=== PATIENT | male | born 1955 | race Caucasian/White ===

== ENCOUNTER 2024-02-06 06:55 | Day surgery (SDC) | payer BC ==
[2024-02-04 13:57] LABS: BASOPHILS # (AUTO) 0.08 K/uL (0.00-0.20); BASOPHILS % (AUTO) 1.1 % (0.0-5.0); EOSINOPHILS # (AUTO) 0.46 K/uL (0.00-0.70); EOSINOPHILS % (AUTO) 6.4 % (0.0-8.0); HEMATOCRIT 40.8 % (42-54); IMMATURE GRANULOCYTE ABSOLUTE 0.05 K/uL (0-1); LYMPHOCYTES # (AUTO) 1.8 K/uL (1.0-4.8); LYMPHOCYTES % (AUTO) 25.3 % (21.0-51.0); MEAN CORPUSCULAR HEMOGLOBIN 29.4 pg (27.0-33.0); MEAN CORPUSCULAR HGB CONC 34.3 g/dL (32.0-36.0); MEAN CORPUSCULAR VOLUME 85.5 fL (79-99); MONOCYTES # (AUTO) 0.4 K/uL (0.1-1.0); MONOCYTES % (AUTO) 5.9 % (3.0-13.0); NEUTROPHILS # (AUTO) 4.3 K/uL (1.8-7.7); NEUTROPHILS % (AUTO) 60.6 % (40.0-77.0); PLATELET COUNT (AUTO) 209 K/uL (130-400); RED BLOOD CELL COUNT(AUTO) 4.77 MIL/uL (4.50-6.20); RED CELL DISTRIBUTION WIDTH 13.4 % (11.0-15.5); WHITE BLOOD COUNT (AUTO) 7.2 K/uL (4.8-10.8)
[2024-02-04 13:59] VITALS: BP 154/78; PULSE 51; RESP 19
[2024-02-06] VITALS (17 sets, daily range): BP systolic 128–150; BP diastolic 58–81; PULSE 51–71; RESP 9–16
[~2024-02-06] VITALS: Ht 182.9 cm; Wt 101.2 kg
[~2024-02-06 06:55] MED LIST: HYDR-3830 PO; IRBE75TA16 PO; METO-391 PO; OMEP40CA21 PO; PREG75CA76 PO; ROTI1PAT8 TP; TADA10TA14 PO; TAMS-1 PO
[2024-02-06] MEDS ORDERED: LIDOCAINE HCL MPF 1% 5ML VIAL ONE (07:53)
[2024-02-06] MEDS ORDERED: MIDAZOLAM HCL 1 MG/ML 2ML VIAL ONE (07:55)
[2024-02-06] MEDS ORDERED: PROPOFOL 10 MG/ML 20ML VIAL IV ONE (07:55)
[2024-02-06] MEDS ORDERED: ROCURONIUM BROMIDE 10MG/1ML 5ML VL ONE (07:55)
[2024-02-06] MEDS ORDERED: DEXAMETHASONE SOD PHOSPHATE 10MG/ML 1ML VIAL ONE (07:56)
[2024-02-06] MEDS ORDERED: FENTANYL CITRATE PF 50 MCG/1 ML 2ML VIAL ONE (07:56)
[2024-02-06] MEDS ORDERED: ONDANSETRON 4MG INJ ONE (07:57)
[2024-02-06] MEDS: LACTATED RINGERS 1000ML 1,000 ML IV ONE (08:15)
[2024-02-06] MEDS ORDERED: NEOSTIGMINE METHYLSULFATE 1MG/ML IV ONE (08:52)
[2024-02-06] MEDS ORDERED: GLYCOPYRROLATE 0.2 MG/ML 5 ML VIAL ONE (08:52)
[2024-02-06] MEDS ORDERED: EPHEDRINE SULFATE 50 MG/ML AMPULE ONE (08:57)
[2024-02-06] MEDS ORDERED: KETOROLAC 30MG VIAL (30MG/ML) ONE (09:10)
[2024-02-06] MEDS: ONDANSETRON 4MG INJ ONE (10:15)
[2024-02-06] MEDS: MEPERIDINE-PF 25 MG/ML SYG ONE (10:16)
[2024-02-06] MEDS: ACETAMINOPHEN 1,000 MG/100 ML VIAL IV ONE (10:16)
[2024-02-06] MEDS: PHENAZOPYRIDINE HCL 200 MG TABLET ONE (10:50)
[2024-02-06] MEDS: CEFTRIAXONE 1G VIAL ONE (10:56)
== END 2024-02-06 11:17 | disposition home or self-care (01) ==
LOC: DAH 06:55
PROVIDERS: ATTEND Urology
DX: N40.1 Benign prostatic hyperplasia with lower urinary tract symptoms (principal); R39.15 Urgency of urination; R35.0 Frequency of micturition; R35.1 Nocturia; K21.9 Gastro-esophageal reflux disease without esophagitis; I10 Essential (primary) hypertension; G20.A1 Parkinson's disease without dyskinesia, without mention of fluctuations; Z79.899 Other long term (current) drug therapy
CPT/HCPCS: 80048; 85025; 36415; 93005; 52648; 88305; A4663; J7120 ×2; A4354; A4340; J3010; J1100; J3490 ×4; J0696; J2250; J2704; J2405 ×2; J1885; J2710; J2175; A4358; A4930; A4215; A4223; A4222; A4221; A4510; A4600